=== PATIENT | male | born 1965 | race Caucasian/White ===

== ENCOUNTER 2024-07-20 03:47 | Inpatient (IN) | payer OTHER, SELFPAY ==
[2024-07-20] VITALS (16 sets, daily range): BP systolic 123–145; BP diastolic 68–95; BMI 26.4; BMI 26.1
[2024-07-20] MEDS: TORADOL 15 MG IV ×2 (00:42→23:13)
[2024-07-20] MEDS: NSS 1000 IV (00:43)
[2024-07-20] MEDS: ZOFRAN 4 MG IV ×3 (00:43→22:20)
[2024-07-20 00:44] LABS: % Basophils 0.8 % (0-2); % Eosinophils 4.2 % (0-6); % Immature Granulocytes 0.4 % (0-0.5); % Monocytes 8.6 % (1.7-9.3); Absolute Basophils 0.1 10^3/uL (0-0.2); Absolute Eosinophils 0.4 10^3/uL (0-0.7); Absolute Monocytes 0.7 10^3/uL (0.1-0.6); Absolute Neutrophils 3.2 10^3/uL (1.4-6.5); Hematocrit 48.4 % (39.0-52.0); Hemoglobin 16.5 g/dL (13.0-18.0); Mean Corp Hgb Conc. 34.1 g/dL (33.0-37.0); Mean Corpuscular Hgb 30.3 pg (27.0-31.0); Mean Corpuscular Volume 88.8 fL (80.0-94.0); Mean Platelet Volume 9.8 fL (7.4-10.4); Nucleated Red Blood Cells % 0 % (-); Platelet Count 229 10^3/uL (130-400); Red Blood Cell Count 5.45 10^6/uL (4.70-6.10); Red Cell Dist. Width 12.3 % (11.5-14.5); White Blood Cell Count 8.3 10^3/uL (4.8-10.8)
[2024-07-20 01:03] LABS: Troponin I < 0.012 ng/ml
[2024-07-20 01:15] LABS: ALT (SGPT) 34 U/L (0-50); AST (SGOT) 59 U/L (17-59); Albumin 4.6 g/dl (3.5-5.0); Alkaline Phosphatase 75 U/L (38-126); Blood Urea Nitrogen 27 mg/dl (9-20); Calcium 9.7 mg/dl (8.4-10.2); Carbon Dioxide 28 mmol/L (22-30); Chloride 102 mmol/L (98-107); Estimated Creatinine Clearance 75 ml/min; Glucose 121 mg/dl (70-99); Potassium 4.1 mmol/L (3.5-5.1); Sodium 143 mmol/L (135-145); Total Bilirubin 0.7 mg/dl (0.2-1.3); Total Protein 6.8 g/dl (6.3-8.2); eGFR > 60.00
[2024-07-20 01:32] LABS: Lipase > 4000 U/L (23-300)
[2024-07-20] MEDS: LR 1000 IV ×5 (01:46→22:25)
[2024-07-20] MEDS: DILAUDID 1 MG IV ×2 (01:46→03:37)
--- NOTE | 2024-07-20 01:53 | ED.GENMED ---
History of Present Illness
General
Chief Complaint: Abdominal Pain
Time Seen by Provider: 07/20/24 01:39
History of Present Illness
History of Present Illness:
TIME OF INITIAL ENCOUNTER: 1:45 AM
HPI:
The patient presents due to relatively abrupt onset abdominal pain. He does not have nausea or vomiting. He had no diarrhea. He has no fevers. He has no back pain. Does not drink alcohol much�no daily use. Has not had symptoms like this before.
EXAM:
GENERAL: Overall fairly well-appearing but appears very uncomfortable
HEENT: Moist oral mucosa
CARDIOVASCULAR: No murmurs, normal heart rate, regular rhythm, No chest wall tenderness
PULMONARY: No respiratory distress, breath sounds are clear and equal
ABDOMEN: Soft with no peritoneal signs, moderate periumbilical and epigastric tenderness
NEUROLOGIC: Excellent strength all extremities, no coordination deficits
PSYCHIATRIC: Appropriate mental status, normal insight and judgement
EXTREMITIES: Nontender, no edema, moves all extremities equally
SKIN: No rash, no lesions
NUMBER AND COMPLEXITY OF PROBLEMS ADDRESSED AT THE ENCOUNTER
� Chronic conditions affecting care: Denies any significant past medical history
� Acute Exacerbation and/or Progression of Chronic Illness: This is an acute problem
� Differential Diagnosis includes: Ureteral stone/colic, mesenteric adenitis, gallstones, cholecystitis, pancreatitis
AMOUNT AND/OR COMPLEXITY OF DATA TO BE REVIEWED AND ANALYZED
� I performed an independent evaluation of and my interpretation is:
EKG: Sinus 77, no acute ST abnormality
CT: I personally reviewed CT imaging, right renal cyst noted and distended gallbladder without gallstones noted, mild peripancreatic inflammatory changes noted
X-rays:
Laboratory Studies: Lipase greater than 4000, white count normal, chemistries otherwise unremarkable
Other:
� Review of other/old records: The patient had colonoscopy in December 2022
� Clinical information was obtained by an independent historian: I spoke to at bedside
� Prescriptions/Medications Considered but not given:
� Further testing considered but not performed:
RISK OF COMPLICATIONS AND/OR MORBIDITY OR MORTALITY OF PATIENT MANAGEMENT
� Social determinants of health affecting care: Lives at home
� Discussion with other providers: Hospitalist, Dr. Lopez at 2 AM for admission
� Escalation of care including admission/observation vs risk of discharge considered: The patient initially had a noncontrast CT and was given Toradol as the nurse noted the patient was in severe pain and thought he had a kidney
stone. However lipase ended up greater than 4000. He was given 2 L of IV fluids. Will plan admission to the hospital. The patient denies any alcohol use.
ANY OTHER UPDATES:
Phy Exam
Physical Exam
Physical Exam:
See HPI
Course
Orders/Labs/Results
Orders:
Orders
07/20/24 00:19
IV Insert/Care/Rem.- Treatment PRN
07/20/24 00:30
Complete Blood Count/With Diff Urgent
Comprehensive Metabolic Panel Urgent
Lipase Urgent
Troponin I Urgent
07/20/24 00:35
Ketorolac [Toradol] 15 mg .ROUTE .STK-MED ONE
Ondansetron Injectable [Zofran] 4 mg .ROUTE .STK-MED ONE
07/20/24 00:38
0.9% Sodium Chloride 1000 ml [Nss] 1,000 ml IV BOLUS
07/20/24 00:39
Ketorolac [Toradol] 15 mg IV NOW STA
Ondansetron Injectable [Zofran] 4 mg IV NOW STA
07/20/24 00:40
CT Abd/pel Without Iv Or Oral Urgent
Comment:
Reason For Exam: lower abd pain
07/20/24 01:40
Lactated Ringers [Lr] 1,000 ml IV BOLUS
07/20/24 01:44
HYDROmorphone [Dilaudid] 1 mg IV NOW STA
07/20/24 02:01
Electrocardiogram (*1) Urgent
Reason for Study: Chest Pain
EKG- Treatment ONCE
Abnormal Lab Results
07/20/24
00:30
Absolute Lymphs (auto) 4.0 H 10^3/uL
(1.2-3.4)
Absolute Monos (auto) 0.7 H 10^3/uL
(0.1-0.6)
Neutrophils % 38.0 L %
(42.2-75.2)
BUN 27 H mg/dl
(9-20)
Glucose 121 H mg/dl
(70-99)
Lipase > 4000 H* U/L
(23-300)
07/20/24 00:30
07/20/24 00:30
Vital Signs
Initial and Last Documented VS:
Initial Vital Signs
Temp Pulse Resp BP Pulse Ox
36.4 C 90 22 138/68 99
07/20/24 00:14 07/20/24 00:14 07/20/24 00:14 07/20/24 00:14 07/20/24 00:14
Last Documented Vital Signs
Temp Pulse Resp BP Pulse Ox
36.4 C 77 22 123/74 98
07/20/24 00:14 07/20/24 01:35 07/20/24 00:14 07/20/24 01:35 07/20/24 01:35
*Critical Care Note
Total Time (30-74mins, 75-104mins- exclusive of procedures): Not Applicable
ED Attending Note
-
Portions of this chart may have been created with voice recognition software.� Occasional wrong word or��sound alike� substitutions may have occurred due to the inherent limitations of voice recognition software.
Discharge Plan
Departure
Patient Disposition: Admit
Date of Disposition: 07/20/24
Time of Disposition: 02:00
Presentation/result/management discussed w/ accepting MD/DO: Hospitalist
Discharge Problem:
Acute pancreatitis
Prescriptions:
No Action
amlodipine
losartan
Interventions
Interventions:
*General Assessment Last Done: 07/20/24 01:04
*Neglect/Abuse Screening Last Done: 07/20/24 01:05
ED- Fall Risk Assessment Last Done: 07/20/24 01:00
*ED COVID-19 Vaccine History Last Done: 07/20/24 01:04
LD-Awrbix-Msqdkhafaz Assessment Last Done: 07/20/24 01:00
Discharge Date and Time
Print Language: LATVIAN
--- NOTE | 2024-07-20 03:23 | HPS.HSE ---
Family Physician
-
Family Physician: Eleazar Mayes
Chief Complaint
-
Abdominal pain
History of Present Illness
This is a 59-year-old with past medical history of hypertension presenting to the emergency department with acute episode of periumbilical abdominal pain.
Patient report acute onset of pain right before midnight. Reports the pain is mostly periumbilical but radiates to the bilateral lower quadrants. There is no associated vomiting. He denies any nausea or diarrhea. He has no fevers or chills. The
pain is persistent, 8 out of 10 and sharp. He denies any prior history of heartburn. He denies any prior surgeries. Patient denies any history of pancreatitis. He denies history of gallstones.
Patient reports that he drinks occasionally. He had 1 or 2 drinks the previous evening but that is not unusual for him.
In the emergency department is hemodynamically stable and afebrile. Was found to have a normal CBC. LFTs were normal however he had a lipase of 4000. Electrolytes BUN/creatinine were within the normal range. CT of the abdomen pelvis shows
edematous pancreas with fat stranding. No peripancreatic fluid collection. There were no gallstones. Gallbladder was slightly distended but no signs of acute cholecystitis. No mention of dilation of the bile duct.
Medical History
Past Medical History
Past Medical History: Reports HTN
Past Surgical History: Reports None
Social History
Tobacco: Non-smoker
Alcohol: Occasional
Drug: None
Personal:
Living: With Family
Employment: Employed
Family History
Family History: Not pertinent
Allergies / Home Medications
Allergies reflects when Allergies were last updated in [facility].
Home Medications with original date entered in [facility]
Allergy/Medication List:
Allergies
Allergy/AdvReac Type Severity Reaction Status Date / Time
No Known Allergies Allergy Verified 07/20/24 00:13
Home Medications
amlodipine 5mg tablet, 5mg po daily 07/20/24
losartan 50mg tablet, 50mg po daily 07/20/24
Review of Systems
-
History Source: Patient
Constitutional: Reports No Symptoms
EENT: Reports No Symptoms
Respiratory: Reports No Symptoms
Cardiac: Reports No Symptoms
Abdomen/GI: Reports Abdominal Pain
: Reports No Symptoms
Musculoskeletal: Reports No Symptoms
Skin: Reports No Symptoms
Neurological: Reports No Symptoms
Endocrine: Reports No Symptoms
Hematologic/Lymphatic: Reports No Symptoms
Psych: Reports No Symptoms
Physical Exam
Vital Signs
Vital Signs
Temp Pulse Resp BP Pulse Ox
97.6 F 77 22 123/74 98
07/20/24 00:14 07/20/24 01:35 07/20/24 00:14 07/20/24 01:35 07/20/24 01:35
Physical Exam
General: Well Developed, Well Nourished, No Apparent Distress and Comfortable
HEENT: NormoCephalic, Anicteric, Moist mucous membranes and Atraumatic
Respiratory: Clear
Cardiac: S1/S2 and Regular Rhythm
Breast: Deferred by me
GI: Soft, Non Distended and Tender
Rectal: Deferred by Provider
Genito-urinary: Deferred by me
Musculoskeletal: No Clubbing, No Cyanosis and No Edema
Skin: Warm
Neuro: AO x 3 and Nonfocal/grossly intact
Hematologic/Lymphatic: No Lymphadenopathy
Laboratory Results
-
07/20/24 00:30
07/20/24 00:30
Laboratory Results
Total Bilirubin 0.7 mg/dl (0.2-1.3) 07/20/24 00:30
AST 59 U/L (17-59) 07/20/24 00:30
ALT 34 U/L (0-50) 07/20/24 00:30
Alkaline Phosphatase 75 U/L (38-126) 07/20/24 00:30
Troponin I < 0.012 ng/ml 07/20/24 00:30
Lipase > 4000 U/L (23-300) H* 07/20/24 00:30
Data Reviewed
-
CT Scan: Report Reviewed by me
Lab Data: Labs Reviewed by me
Old Records: Reviewed
Impression/Plan
-
IMPRESSION:
59-year-old male with acute pancreatitis. History of minimal alcohol intake about 1-2 drinks a night and no recent binging episode. No prior history of gallstones. CT scan shows proctitis but negative for any other finding including acute
cholecystitis, presence of gallstones, ductal dilation. LFTs were completely normal. Given degree of alcohol intake he does not appear to be likely to be alcoholic pancreatitis however no other etiology is as likely. No evidence of current
gallstones but could have had passed a gallstone. No medications or exposures.
PLAN:
1. Acute pancreatitis - severe pain but no other findings c/w complicated pancreatitis
- admit to med/surg
- npo except sips and ice chips
- IV fluids with LR at 150 ml/hr for now
- pain control and antiemetics
- check triglycerides, and trend LFTs
- if negative and patient does not endorse higher etoh intake, consider GI consult.
2. HTN
- continue amlodipine
- continue losartan
DVT PPX - lovenox sq
Code status - full code
[2024-07-20 06:53] LABS: Hematocrit 44.7 % (39.0-52.0); Hemoglobin 15.8 g/dL (13.0-18.0); Mean Corp Hgb Conc. 35.3 g/dL (33.0-37.0); Mean Corpuscular Hgb 30.9 pg (27.0-31.0); Mean Corpuscular Volume 87.3 fL (80.0-94.0); Mean Platelet Volume 10.2 fL (7.4-10.4); Platelet Count 147 10^3/uL (130-400); Red Blood Cell Count 5.12 10^6/uL (4.70-6.10); Red Cell Dist. Width 12.2 % (11.5-14.5); White Blood Cell Count 10.3 10^3/uL (4.8-10.8)
[2024-07-20 07:11] LABS: ALT (SGPT) 106 U/L (0-50); AST (SGOT) 133 U/L (17-59); Albumin 3.9 g/dl (3.5-5.0); Alkaline Phosphatase 72 U/L (38-126); Blood Urea Nitrogen 23 mg/dl (9-20); Carbon Dioxide 24 mmol/L (22-30); Chloride 107 mmol/L (98-107); Estimated Creatinine Clearance 90 ml/min; Glucose 140 mg/dl (70-99); Sodium 138 mmol/L (135-145); Total Bilirubin 1.1 mg/dl (0.2-1.3); Triglycerides 59 mg/dl (10-149); eGFR > 60.00
[2024-07-20] MEDS: NORVASC 5 MG PO (07:45)
[2024-07-20] MEDS: COZAAR 50 MG PO (07:45)
[2024-07-20] MEDS: DILAUDID 0.5 MG IV ×3 (08:11→19:05)
[2024-07-20 09:21] LABS: Potassium 4.6 mmol/L (3.5-5.1)
--- NOTE | 2024-07-20 10:37 | W.PN.UPDATE ---
Update Note
Progress Note Update
Non-billable addendum (H&P submitted 3 AM)
reports epigastric pain, mild nausea
no fever/chills
IVF continue
Assessment:
Acute pancreatitis, likely induced by alcohol intake
Associated transaminitis
- patient reports 1-2 drinks daily, but more so over holiday period
- CT: Mild pancreatic edema, suggestive of pancreatitis. No associated fluid collection. no biliary ductal dilatation.
- TG negative
- continue aggressive IVF
- trend Lipase
- NPO for now
- pain control, anti-emetics
Essential HTN
- continue Amlodipine and Losartan
DVT ppx: Lovenox
Code: Full
[2024-07-20 11:30] LABS: Lipase > 4000 U/L (23-300)
[2024-07-20] MEDS: MORPHINE SULFATE 4 MG IV (15:10)
[2024-07-20] MEDS: LOVENOX 40 MG SC (19:00)
[2024-07-21 05:13] LABS: Hemoglobin 15.1 g/dL (13.0-18.0); Mean Corp Hgb Conc. 35.1 g/dL (33.0-37.0); Mean Corpuscular Hgb 30.6 pg (27.0-31.0); Mean Platelet Volume 10.1 fL (7.4-10.4); Platelet Count 146 10^3/uL (130-400); Red Blood Cell Count 4.94 10^6/uL (4.70-6.10); Red Cell Dist. Width 12.3 % (11.5-14.5); White Blood Cell Count 9.2 10^3/uL (4.8-10.8)
[2024-07-21 05:39] LABS: ALT (SGPT) 64 U/L (0-50); AST (SGOT) 36 U/L (17-59); Albumin 3.4 g/dl (3.5-5.0); Alkaline Phosphatase 61 U/L (38-126); Blood Urea Nitrogen 15 mg/dl (9-20); Calcium 8.7 mg/dl (8.4-10.2); Carbon Dioxide 25 mmol/L (22-30); Chloride 104 mmol/L (98-107); Estimated Creatinine Clearance 100 ml/min; Glucose 110 mg/dl (70-99); Sodium 137 mmol/L (135-145); Total Bilirubin 1.3 mg/dl (0.2-1.3); Total Protein 5.4 g/dl (6.3-8.2); eGFR > 60.00
[2024-07-21 05:50] LABS: Lipase > 4000 U/L (23-300)
[2024-07-21 06:00] VITALS: BMI 26.2
[2024-07-21] MEDS: DILAUDID 0.5 MG IV ×3 (06:19→21:25)
[2024-07-21 07:39] VITALS: BP 131/85
[2024-07-21] MEDS: LR 1000 IV ×3 (09:01→21:24)
[2024-07-21] MEDS: NORVASC 5 MG PO (09:03)
[2024-07-21] MEDS: COZAAR 50 MG PO (09:03)
--- NOTE | 2024-07-21 12:10 | W.PN.HOSP.TC ---
Today's Communication/Plan
-
continue aggressive IVF and trend lipase
supportive care
NPO for now (ok for sips for meds)
Assessment / Plan
Assessment / Plan
Assessment:
Acute pancreatitis, likely induced by alcohol intake
Associated transaminitis
- patient reports 1-2 drinks daily, but more so over holiday period
- CT: Mild pancreatic edema, suggestive of pancreatitis. No associated fluid collection. no biliary ductal dilatation.
- TG negative
- continue aggressive IVF
- trend Lipase, still remains >4000
- NPO for now (ok for sips for meds)
- pain control, anti-emetics
- if no improvement in 24 hours further of IVF, will consider repeat imaging and GI eval
Essential HTN
- continue Amlodipine and Losartan
DVT ppx: Lovenox
Code: Full
Anticipated Discharge: > 48 hours
Subjective/Interval History
-
Date of Service: July 21, 2024
reports 4/10 abd pain and gas discomfort, along with headache
Objective Data
-
Labs:
Laboratory Results
07/21/24
04:32
WBC 9.2
Hgb 15.1
Hct 43.0
Plt Count 146
Sodium 137
Potassium 4.0
Chloride 104
Carbon Dioxide 25
BUN 15
Creatinine 0.9
Glucose 110 H
Calcium 8.7
Total Bilirubin 1.3
AST 36
ALT 64 H
Alkaline Phosphatase 61
Vital Signs:
Vital Signs
Temp Pulse Resp BP Pulse Ox
98.5 F 81 14 131/85 96
07/21/24 07:39 07/21/24 07:39 07/21/24 07:39 07/21/24 07:39 07/21/24 07:39
I&O
07/20/24 07/21/24 07/22/24
06:59 06:59 06:59
Intake Total 1000 / 1000 3350 / 3350
Output Total 1500 / 1500
Balance 1000 / 1000 1850 / 1850
Physical Exam
-
General: No Apparent Distress
HEENT: Normocephalic and Atraumatic
Respiratory: Negative Wheezes
Cardiac: Regular Rhythm and S1/S2
GI: Tender and Distended (mildly)
Genito-urinary: No Costovertebral Tender
Neuro: AO x 3
Psych: Calm
Data Reviewed
-
Total Time Spent with Patient (in minutes): 45
Labs: Labs Reviewed by me
[2024-07-21] MEDS: TYLENOL 650 MG PO (13:48)
--- NOTE | 2024-07-21 15:09 | CM ---
Met with pt at bedside
Pt reports he lives with his in a 2 story home; 1 step to enter, 14 steps to 2nd fl
Independent, employed FT, drives
DME - none
SNF/HH - denies past hx
Has ride at discharge
PCP - Eleazar Mayes
Pharm - [facility]
Plan - anticipate home no needs
[2024-07-21 15:18] VITALS: BP 142/91
[2024-07-21] MEDS: LOVENOX 40 MG SC (18:15)
[2024-07-21 23:00] VITALS: BP 109/74
[2024-07-22] MEDS: DILAUDID 0.5 MG IV (03:12)
[2024-07-22] MEDS: LR 1000 IV (03:13)
[2024-07-22] MEDS: TYLENOL 650 MG PO ×2 (03:17→20:15)
[2024-07-22 07:45] VITALS: BP 133/88
[2024-07-22] MEDS: COZAAR 50 MG PO (07:47)
[2024-07-22] MEDS: MAXALT MLT (ORALLY DISINTEGRATING) 10 MG PO (07:47)
[2024-07-22] MEDS: NORVASC 5 MG PO (07:48)
[2024-07-22 08:09] LABS: Hematocrit 42.2 % (39.0-52.0); Hemoglobin 14.3 g/dL (13.0-18.0); Mean Corp Hgb Conc. 33.9 g/dL (33.0-37.0); Mean Corpuscular Hgb 30.2 pg (27.0-31.0); Mean Corpuscular Volume 89.2 fL (80.0-94.0); Mean Platelet Volume 9.9 fL (7.4-10.4); Platelet Count 156 10^3/uL (130-400); Red Blood Cell Count 4.73 10^6/uL (4.70-6.10); Red Cell Dist. Width 12.3 % (11.5-14.5); White Blood Cell Count 8.7 10^3/uL (4.8-10.8)
[2024-07-22 08:46] LABS: ALT (SGPT) 39 U/L (0-50); AST (SGOT) 23 U/L (17-59); Albumin 3.3 g/dl (3.5-5.0); Alkaline Phosphatase 57 U/L (38-126); Blood Urea Nitrogen 14 mg/dl (9-20); Calcium 8.7 mg/dl (8.4-10.2); Carbon Dioxide 31 mmol/L (22-30); Chloride 99 mmol/L (98-107); Estimated Creatinine Clearance 90 ml/min; Glucose 81 mg/dl (70-99); Lipase 610 U/L (23-300); Potassium 3.7 mmol/L (3.5-5.1); Sodium 138 mmol/L (135-145); Total Bilirubin 1.5 mg/dl (0.2-1.3); Total Protein 5.4 g/dl (6.3-8.2); eGFR > 60.00
--- NOTE | 2024-07-22 09:21 | CM ---
Patient and seen at bedside. Patient states that he feels somewhat better but does not anticipate discharge planning needs at this time. CM will continue to follow for discharge planning needs.
Plan;home with no needs.
--- NOTE | 2024-07-22 14:29 | W.PN.HOSP.TC ---
Today's Communication/Plan
-
clears
add GasX, PPI, Tramadol (stop Dilaudid)
cap IVF
Assessment / Plan
Assessment / Plan
Assessment:
Acute pancreatitis, likely induced by alcohol intake
Associated transaminitis
- patient reports 1-2 drinks daily, but more so over holiday period
- CT: Mild pancreatic edema, suggestive of pancreatitis. No associated fluid collection. no biliary ductal dilatation.
- TG negative
- s/p Aggressive IVF x 48 hours, now lipase <1000
- clears to tolerance, advised patient to go slow
- oral pain control, anti-emetics
- monitor symptoms over next 24 hours, could consider repeat imaging
Essential HTN
- continue Amlodipine and Losartan
DVT ppx: Lovenox
Code: Full
Anticipated Discharge: 24 - 48 hours
Subjective/Interval History
-
Date of Service: July 22, 2024
Lipase improved
did ok with clears, but some pain afterwards
no n/v
passing gas, no BM
Objective Data
-
Labs:
Laboratory Results
07/22/24
07:25
WBC 8.7
Hgb 14.3
Hct 42.2
Plt Count 156
Sodium 138
Potassium 3.7
Chloride 99
Carbon Dioxide 31 H
BUN 14
Creatinine 1.0
Glucose 81
Calcium 8.7
Total Bilirubin 1.5 H
AST 23
ALT 39
Alkaline Phosphatase 57
Vital Signs:
Vital Signs
Temp Pulse Resp BP Pulse Ox
97.8 F 73 18 133/88 96
07/22/24 07:45 07/22/24 07:48 07/22/24 07:45 07/22/24 07:48 01/06/25 07:45
I&O
07/21/24 07/22/24 07/23/24
06:59 06:59 06:59
Intake Total 3350 / 3350 3600 / 3600
Output Total 1500 / 1500 500 / 500 275 / 275
Balance 1850 / 1850 3100 / 3100 -275 / -275
Physical Exam
-
General: No Apparent Distress
HEENT: Normocephalic and Atraumatic
Respiratory: Negative Wheezes
Cardiac: Regular Rhythm and S1/S2
GI: Soft and Tender (mildly)
Genito-urinary: No Costovertebral Tender
Neuro: AO x 3
Hematologic / Lymphatic: No Lymphadenopathy
Psych: Calm
Data Reviewed
-
Total Time Spent with Patient (in minutes): 41
Labs: Labs Reviewed by me
[2024-07-22] MEDS: PROTONIX IV 40 MG IV (14:36)
[2024-07-22] MEDS: ULTRAM 50 MG PO ×2 (14:37→20:41)
[2024-07-22] MEDS: MYLICON 80 MG PO (14:37)
[2024-07-22] MEDS: NSS (PRESERVATIVE FREE) 10 ML IV (14:37)
[2024-07-22 15:32] VITALS: BP 122/84
[2024-07-22] MEDS: LOVENOX 40 MG SC (17:24)
[2024-07-22 23:00] VITALS: BP 129/82
[2024-07-23] MEDS: TYLENOL 650 MG PO (00:21)
[2024-07-23 06:33] LABS: Hematocrit 41.1 % (39.0-52.0); Hemoglobin 14.1 g/dL (13.0-18.0); Mean Corp Hgb Conc. 34.3 g/dL (33.0-37.0); Mean Corpuscular Hgb 30.1 pg (27.0-31.0); Mean Corpuscular Volume 87.6 fL (80.0-94.0); Mean Platelet Volume 9.9 fL (7.4-10.4); Platelet Count 145 10^3/uL (130-400); Red Blood Cell Count 4.69 10^6/uL (4.70-6.10); Red Cell Dist. Width 12.3 % (11.5-14.5); White Blood Cell Count 9.4 10^3/uL (4.8-10.8)
[2024-07-23 06:58] LABS: ALT (SGPT) 31 U/L (0-50); AST (SGOT) 19 U/L (17-59); Albumin 3.3 g/dl (3.5-5.0); Alkaline Phosphatase 58 U/L (38-126); Blood Urea Nitrogen 13 mg/dl (9-20); Calcium 8.8 mg/dl (8.4-10.2); Carbon Dioxide 30 mmol/L (22-30); Chloride 98 mmol/L (98-107); Estimated Creatinine Clearance 100 ml/min; Glucose 91 mg/dl (70-99); Lipase 249 U/L (23-300); Potassium 3.7 mmol/L (3.5-5.1); Total Bilirubin 1.6 mg/dl (0.2-1.3); Total Protein 5.5 g/dl (6.3-8.2); eGFR > 60.00
[2024-07-23 07:03] LABS: Sodium 136 mmol/L (135-145)
[2024-07-23 07:30] VITALS: BP 136/88
[2024-07-23 08:10] VITALS: BP 136/88
[2024-07-23] MEDS: NORVASC 5 MG PO (09:37)
[2024-07-23] MEDS: COZAAR 50 MG PO (09:37)
--- NOTE | 2024-07-23 11:49 | W.PN.HOSP.TC ---
Today's Communication/Plan
-
full liquids and possible LFD with DC if tolerated
supportive care with prn pain meds, PPI, gas X, antiemetics
Assessment / Plan
Assessment / Plan
Assessment:
Acute pancreatitis, likely induced by alcohol intake
Associated transaminitis
- patient reports 1-2 drinks daily, but more so over holiday period
- CT: Mild pancreatic edema, suggestive of pancreatitis. No associated fluid collection. no biliary ductal dilatation.
- TG negative
- s/p Aggressive IVF x 48 hours, now lipase <249
- tolerated clears better last evening and this AM. ADAT to full liquids, if ok, can advance to LFD for dinner and dc if tolerated
- oral pain control, anti-emetics prn, PPI, Gas X etc
Essential HTN
- continue Amlodipine and Losartan
DVT ppx: Lovenox
Code: Full
Anticipated Discharge: Within 24 hours
Subjective/Interval History
-
Date of Service: July 23, 2024
denies any new complaints at present
tolerated clears this AM (much better tolerance compared to 1st attempt with clears 24 hours prior)
reports passing gas, less bloating, no BM yet
Objective Data
-
Labs:
Laboratory Results
07/23/24
05:47
WBC 9.4
Hgb 14.1
Hct 41.1
Plt Count 145
Sodium 136
Potassium 3.7
Chloride 98
Carbon Dioxide 30
BUN 13
Creatinine 0.9
Glucose 91
Calcium 8.8
Total Bilirubin 1.6 H
AST 19
ALT 31
Alkaline Phosphatase 58
Vital Signs:
Vital Signs
Temp Pulse Resp BP Pulse Ox
97.3 F 75 16 136/88 97
07/23/24 07:30 07/23/24 07:30 07/23/24 07:30 07/23/24 07:30 07/23/24 07:30
I&O
07/22/24 07/23/24 07/24/24
06:59 06:59 06:59
Intake Total 3600 / 3600 1080 / 1080
Output Total 500 / 500 275 / 275
Balance 3100 / 3100 805 / 805
Physical Exam
-
General: No Apparent Distress
HEENT: Normocephalic and Atraumatic
Respiratory: Rales; Negative Wheezes
Cardiac: Regular Rhythm and S1/S2
GI: Soft and Nontender
Neuro: AO x 3
Psych: Calm
Data Reviewed
-
Total Time Spent with Patient (in minutes): 42
Labs: Labs Reviewed by me
--- NOTE | 2024-07-23 11:57 | W.DS.TRANS ---
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
-
Discharge Instructions:
Discharge Diagnosis/Procedures acute pancreatitis
Diet Low Fat
Additional Diets x 1 week on low fat
Activity As tolerated
Bathing Restrictions None
Instructions:
Stand-Alone Forms:
Changes to Home Medications: No
Discharge Medications:
DC Medications w/original date entered in [facility]
amlodipine 5 mg tablet (Norvasc) 5 mg PO DAILY Blood Pressure 07/20/24
losartan 50 mg tablet 50 mg PO DAILY Blood Pressure 07/20/24
acetaminophen 325 mg tablet 650 mg (2 x 325 mg) PO Q4HPRN PRN mild pain/EASTON/temp> 100.4F #100 tabs 07/23/24
ondansetron 4 mg disintegrating tablet 4 mg PO Q8H PRN nausea and vomiting #15 tabs 07/23/24
pantoprazole 40 mg tablet,delayed release (Protonix) 40 mg PO DAILY #30 tabs 07/23/24
simethicone 80 mg chewable tablet 80 mg PO QIDPRN PRN gas pain #30 tabs 07/23/24
tramadol 50 mg tablet 50 mg PO Q6HPRN PRN moderate to severe pain #10 tabs 07/23/24
Home Medication Changes
Pending Results: No
Total time spent discharging patient (in min): 41
[2024-07-23] MEDS: NSS (PRESERVATIVE FREE) 10 ML IV (12:57)
[2024-07-23] MEDS: PROTONIX IV 40 MG IV (12:57)
--- NOTE | 2024-07-23 13:18 | CM ---
Chart reviewed; met with pt
Poss d/c today
Pt reports he will have transport
Plan - anticipate home - no needs
[2024-07-23 15:35] VITALS: BP 139/95
[2024-07-23] MEDS: LOVENOX 40 MG SC (18:12)
[2024-07-23] MEDS: MYLICON 80 MG PO (18:17)
[2024-07-23] MEDS: ULTRAM 50 MG PO (18:18)
[2024-07-23 23:37] VITALS: BP 143/91
[2024-07-24] MEDS: ULTRAM 50 MG PO (00:23)
[2024-07-24] MEDS: MYLICON 80 MG PO (00:23)
[2024-07-24 07:19] LABS: ALT (SGPT) 24 U/L (0-50); AST (SGOT) 18 U/L (17-59); Albumin 3.3 g/dl (3.5-5.0); Alkaline Phosphatase 61 U/L (38-126); Blood Urea Nitrogen 16 mg/dl (9-20); Calcium 8.8 mg/dl (8.4-10.2); Carbon Dioxide 27 mmol/L (22-30); Chloride 99 mmol/L (98-107); Estimated Creatinine Clearance 90 ml/min; Glucose 87 mg/dl (70-99); Lipase 284 U/L (23-300); Potassium 3.7 mmol/L (3.5-5.1); Sodium 136 mmol/L (135-145); Total Bilirubin 1.2 mg/dl (0.2-1.3); Total Protein 5.5 g/dl (6.3-8.2); eGFR > 60.00
[2024-07-24 07:30] VITALS: BP 142/94
[2024-07-24] MEDS: COZAAR 50 MG PO (08:12)
[2024-07-24] MEDS: NORVASC 5 MG PO (08:12)
--- NOTE | 2024-07-24 09:43 | W.PN.HOSP.TC ---
Today's Communication/Plan
-
Discharge
Assessment / Plan
Assessment / Plan
Gen-AAOx3, NAD
HEENT-NC, AT, anicteric, clear oral mm
Neck-supple
CV-reg, no M, +S1/S2
Lungs-clear B/L
Abd-soft, mild epigastric tenderness, no rebound or guarding
Ext-no edema
Musculoskeletal-no cyanosis, clubbing
Skin-warm and dry
Neuro-grossly non-focal
Psych-calm, cooperative
Acute pancreatitis, likely induced by alcohol intake
Associated transaminitis
- patient reports 1-2 drinks daily, but more so over holiday period
- CT: Mild pancreatic edema, suggestive of pancreatitis. No associated fluid collection. no biliary ductal dilatation.
- TG negative
- s/p Aggressive IVF x 48 hours, now lipase <249
-Tolerating low-fat diet
- oral pain control, anti-emetics prn, PPI, Gas X etc
Essential HTN
- continue Amlodipine and Losartan
DVT ppx: Lovenox
Code: Full
Dispo - medically stable for discharge home today. Outpatient follow-up. Alcohol abstinence recommended.
32 minutes spent in discharge process.
Anticipated Discharge: Today
Subjective/Interval History
-
Date of Service: July 24, 2024
Patient seen and examined. Overall feeling better, less abdominal pain. Tolerating diet.
Objective Data
-
Labs:
Laboratory Results
07/24/24
05:54
Sodium 136
Potassium 3.7
Chloride 99
Carbon Dioxide 27
BUN 16
Creatinine 1.0
Glucose 87
Calcium 8.8
Total Bilirubin 1.2
AST 18
ALT 24
Alkaline Phosphatase 61
Vital Signs:
Vital Signs
Temp Pulse Resp BP Pulse Ox
98.5 F 88 18 142/94 95
07/24/24 07:30 07/24/24 07:30 07/24/24 07:30 07/24/24 07:30 07/24/24 08:00
I&O
07/23/24 07/24/24 07/25/24
06:59 06:59 06:59
Intake Total 1080 / 1080 960 / 960 480 / 480
Output Total 275 / 275
Balance 805 / 805 960 / 960 480 / 480
Review of Systems
-
History Source: Patient
All other systems: Reviewed and negative
--- NOTE | 2024-07-24 09:46 | W.DS.TRANS ---
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
-
Discharge Instructions:
Discharge Diagnosis/Procedures acute pancreatitis
Diet Low Fat,Low Cholesterol
Additional Diets x 1 week on low fat
Activity As tolerated
Bathing Restrictions None
Instructions:
Stand-Alone Forms:
Changes to Home Medications: No
Discharge Medications:
DC Medications w/original date entered in [facility]
amlodipine 5 mg tablet (Norvasc) 5 mg PO DAILY Blood Pressure 07/20/24
losartan 50 mg tablet 50 mg PO DAILY Blood Pressure 07/20/24
acetaminophen 325 mg tablet 650 mg (2 x 325 mg) PO Q4HPRN PRN mild pain/EASTON/temp> 100.4F #100 tabs 07/23/24
ondansetron 4 mg disintegrating tablet 4 mg PO Q8H PRN nausea and vomiting #15 tabs 07/23/24
pantoprazole 40 mg tablet,delayed release (Protonix) 40 mg PO DAILY #30 tabs 07/23/24
simethicone 80 mg chewable tablet 80 mg PO QIDPRN PRN gas pain #30 tabs 07/23/24
tramadol 50 mg tablet 50 mg PO Q6HPRN PRN moderate to severe pain #10 tabs 07/23/24
Home Medication Changes
Pending Results: No
--- NOTE | 2024-07-24 10:37 | CM ---
Pt for discharge today
Has ride home
Plan - home no needs
== END 2024-07-24 10:33 | disposition home or self-care (01) | DRG 440 ==
LOC: 2 SOUTH 03:47
PROVIDERS: Internal Medicine; ADMITTING PHYSICIAN Internal Medicine; ATTENDING PHYSICIAN Hospitalist; EMERGENCY PHYSICIAN Emergency Medicine; FAMILY PHYSICIAN Internal Medicine
DX: K85.20 Alcohol induced acute pancreatitis without necrosis or infection (principal); I10 Essential (primary) hypertension; K86.89 Other specified diseases of pancreas; F10.90 Alcohol use, unspecified, uncomplicated; R74.01 Elevation of levels of liver transaminase levels
CPT/HCPCS: 74176; 80053; 82248; 83690; 84478; 84484; 85025; 85027; 93005; 96361; 96374; 96375; 96376; 99285

== ENCOUNTER → 2024-08-26 20:33 | Outpatient (REF) | payer OTHER, SELFPAY | LOC: MRI 3T 20:33 | PROVIDERS: ATTENDING PHYSICIAN Internal Medicine | DX: K85.90 Acute pancreatitis without necrosis or infection, unspecified (principal); R10.9 Unspecified abdominal pain | CPT/HCPCS: 74181 ==